=== PATIENT | female | born 1990 | race Hispanic/Latino ===

== ENCOUNTER 2018-05-26 00:28 | Emergency (ER) | payer BC ==
[2018-05-26 00:39] VITALS: BP 104/54; PULSE 85; RESP 16; TEMP 97.5; O2SAT 100
[2018-05-26] MEDS ORDERED: Sodium Chloride 0.9% 1,000 ML IV STA (01:21)
[2018-05-26] MEDS ORDERED: Sucralfate 1 gm/10 ml Oral Susp UD PO STA (01:27)
[2018-05-26] MEDS ORDERED: Sucralfate 1 gm/10 ml Oral Susp UD ONE (01:52)
[2018-05-26 01:54] LABS: BASO % 0.4 % (0.0-2.0); EOS % 0.7 % (0.0-4.0); HEMOGLOBIN 13.5 g/dL (12.0-16.0); LYMPH # 1.5 K/uL (1.0-4.3); LYMPH % 30.1 % (20.0-40.0); MEAN CELL VOLUME 94.7 fl (81.0-99.0); MEAN CORPUSCULAR HEMOGLOBIN 32.1 pg (27.0-31.0); MEAN CORPUSCULAR HGB CONC 33.9 g/dL (33.0-37.0); MEAN PLATELET VOLUME 8.8 fl (7.2-11.7); MONO # 0.3 K/uL (0.0-0.8); MONO % 6.3 % (0.0-10.0); NEUT % 62.5 % (50.0-75.0); RBC 4.21 Mil/uL (3.80-5.20); RED CELL DISTRIBUTION WIDTH 12.8 % (11.5-14.5); WHITE BLOOD COUNT 4.8 K/uL (4.8-10.8)
[2018-05-26 02:04] LABS: ALB/GLOB RATIO 1.2 (1.0-2.1); ALBUMIN 4.3 g/dL (3.5-5.0); ALT/SGPT 16 U/L (9-52); AST/SGOT 27 U/L (14-36); BLOOD UREA NITROGEN 12 mg/dl (7-17); CALCIUM 8.6 mg/dL (8.4-10.2); GFR NON-AFRICAN AMERICAN > 60; LIPASE 176 U/L (23-300)
[2018-05-26 03:01] LABS: SQUAMOUS EPITHIAL < 1 /hpf (0-5); URINE BACTERIA FEW (<OCC); URINE BILIRUBIN NEGATIVE (NEGATIVE); URINE BLOOD SMALL (NEGATIVE); URINE CLARITY CLEAR (Clear); URINE COLOR STRAW (YELLOW); URINE GLUCOSE (UA) NEG (Normal); URINE LEUKOCYTE ESTERASE NEG Leu/uL (Negative); URINE PROTEIN NEGATIVE (NEGATIVE); URINE UROBILINOGEN 0.2-1.0 mg/dL (0.2-1.0)
--- NOTE | 2018-05-26 03:23 | ED PDOC ---
HPI: Abdomen Time Seen by Provider: 05/26/18 01:17 Chief Complaint (Nursing): GI Problem Chief Complaint (Provider): GI Problem History Per: Patient History/Exam Limitations: no limitations Onset/Duration Of Symptoms: Days (x4) Current Symptoms Are (Timing): Still Present Additional Complaint(s): 28 year old female presents with upper abdominal pain radiating to her chest associated with nausea and vomiting for 4 days. Patient was evaluated by Urgent Care 2 days ago with normal EKG and Rx for medications, however, prescriptions were not filled. Otherwise: (-) fever, (-) chills, (-) diarrhea, (-) cough, or (-) shortness of breath. PCP: [facility] Past Medical History Reviewed: Historical Data, Nursing Documentation, Vital Signs Vital Signs: Last Vital Signs Temp 97.5 F L 05/26/18 00:35 Pulse 85 05/26/18 00:35 Resp 16 05/26/18 00:35 BP 104/54 L 05/26/18 00:35 Pulse Ox 100 05/26/18 00:35 - Medical History PMH: No Chronic Diseases - Surgical History Surgical History: No Surg Hx - Family History Family History: States: Unknown Family Hx - Social History Current smoker - smoking cessation education provided: No Alcohol: None Drugs: Denies - Home Medications Home Medications: Ambulatory Orders Medication Instructions Recorded Esomeprazole Magnesium [Nexium] 20 mg PO QAM #30 ecc 05/26/18 Ondansetron ODT [Zofran ODT] 4 mg PO Q6H PRN #8 odt 05/26/18 Sucralfate [Carafate Oral Susp] 1 gm PO QID #28 g 05/26/18 - Allergies Allergies/Adverse Reactions: Allergies Allergy/AdvReac Type Severity Reaction Status Date / Time Penicillins Allergy ANAPHYLAXIS Verified 05/26/18 00:39 Review of Systems ROS Statement: Except As Marked, All Systems Reviewed And Found Negative Constitutional: Negative for: Fever, Chills Cardiovascular: Positive for: Chest Pain Respiratory: Negative for: Cough, Shortness of Breath Gastrointestinal: Positive for: Nausea, Vomiting, Abdominal Pain (upper). Negative for: Diarrhea Physical Exam - Reviewed Nursing Documentation Reviewed: Yes Vital Signs Reviewed: Yes - Physical Exam Appears: Positive for: Non-toxic, No Acute Distress Head Exam: Positive for: ATRAUMATIC, NORMAL INSPECTION, NORMOCEPHALIC Skin: Positive for: Normal Color Eye Exam: Positive for: Normal appearance ENT: Positive for: Normal ENT Inspection Neck: Positive for: Normal Cardiovascular/Chest: Positive for: Regular Rate, Rhythm Respiratory: Positive for: Normal Breath Sounds. Negative for: Respiratory Distress Gastrointestinal/Abdominal: Positive for: Soft, Tenderness (epigastric mildly) Back: Positive for: Normal Inspection. Negative for: L CVA Tenderness, R CVA Tenderness Extremity: Positive for: Normal ROM (upper/lower) Neurologic/Psych: Positive for: Alert, Oriented - Laboratory Results Result Diagrams: 05/26/18 01:44 05/26/18 01:44 - ECG O2 Sat by Pulse Oximetry: 100 (RA) Pulse Ox Interpretation: Normal Medical Decision Making Medical Decision Making: Initial Impression: 28 year old female with epigastric pain, nausea, and vomiting. Initial Plan: * EKG * Labs * Carafate oral susp 1gm PO * IV fluids * Pepcid 20mg IV * Zofran inj 4mg IV * US gallbladder and pancreas Time: 0303 --US gallbladder and pancreas Findings: Liver is normal in size measuring 12.1 cm. Normal bilateral thickness measuring 2 mm. No evidence of cholelithiasis or gallbladder sludge. Nondilated common bile duct measuring 3 mm. Unremarkable pancreas. Unremarkable IVC. Unremarkable aorta. Unremarkable right kidney measuring 9.3 x 3.9x3.7 cm. Significant gaseous dilatation of the bowels. Impression: Unremarkable exam. Time: 0350 --Labs reviewed: no significant clinical abnormality. Upon provider reevaluation, patient is medically stable, reports improvement in symptoms and requires no further treatment in the ED at this time. Patient will be discharged home with Rx for Nexium and Carafate. Counseling was provided and all questions were answered regarding diagnosis. There is agreement to discharge plan. Return if symptoms persist or worsen. Clinical Impression: Gastritis; GERD Scribe Attestation: Documented by Norma Krause, acting as a scribe for Matty Pope MD. Provider Scribe Attestation: All medical record entries made by the Scribe were at my direction and personally dictated by me. I have reviewed the chart and agree that the record accurately reflects my personal performance of the history, physical exam, medical decision making, and the department course for this patient. I have also personally directed, reviewed, and agree with the discharge instructions and disposition. Disposition - Clinical Impression Clinical Impression: Gastritis, GERD (gastroesophageal reflux disease) - Patient ED Disposition Is Patient to be Admitted: No Counseled Patient/Family Regarding: Studies Performed, Diagnosis, Need For Followup, Rx Given - Disposition Referrals: Franco Lorenzo MD [Staff Provider] - Disposition: Routine/Home Disposition Time: 03:50 Condition: IMPROVED Prescriptions: Esomeprazole Magnesium [Nexium] 20 mg PO QAM #30 ecc Ondansetron ODT [Zofran ODT] 4 mg PO Q6H PRN #8 odt PRN Reason: Nausea/Vomiting Sucralfate [Carafate Oral Susp] 1 gm PO QID #28 g Instructions: Gastritis, Acid Reflux (Gastroesophageal Reflux Disease), Adult (DC) Forms: [employer] ([place])
--- NOTE | 2018-05-26 14:23 | US ---
Date of service: 05/26/2018 HISTORY: epigastric pain COMPARISON: None. TECHNIQUE: Sonographic evaluation of the right upper quadrant of the abdomen. FINDINGS: LIVER: Measures cm in length. Normal echogenicity of the liver parenchyma. No mass. No intrahepatic bile duct dilatation. GALLBLADDER: Unremarkable. No gallstones. COMMON BILE DUCT: Measures mm. No stones. No dilatation. PANCREAS: Unremarkable as visualized. No mass. No ductal dilatation. RIGHT KIDNEY: Measures cm in length. Normal echogenicity. No calculus, mass, or hydronephrosis. AORTA: No aneurysmal dilatation. IVC: Unremarkable. OTHER FINDINGS: None . IMPRESSION: Normal exam.
--- NOTE | 2018-05-26 18:13 | CARD ---
APPROVED REPORT Date of service: 05/26/2018 EKG Measurement Heart [id number] <Conclusion> Normal sinus rhythm Nonspecific T wave abnormality Prolonged QT Abnormal ECG
== END 2018-05-26 04:12 | disposition home or self-care (01) ==
LOC: H.ER 00:28
DX: K29.70 Gastritis, unspecified, without bleeding (principal); K21.9 Gastro-esophageal reflux disease without esophagitis; Z88.0 Allergy status to penicillin
CPT/HCPCS: 76705; 80053; 81003; 81025; 83690; 85025; 93005; 96360; 99283; J2405; J7030